=== PATIENT | male | born 1985 | race African-American/Black ===

== ENCOUNTER 2023-12-29 10:43 | Emergency (ER) | payer MEDICAID, OTHER ==
[~2023-12-29] VITALS: Ht 175.3 cm; Wt 63.6 kg
[2023-12-29 10:49] VITALS: PULSE 115; RESP 18; O2SAT 99
[2023-12-29] MEDS: ACETAMINOPHEN 325 MG TAB PO ONE (11:36)
[2023-12-29 11:39] VITALS: BP 117/89; PULSE 78; RESP 17; O2SAT 98
[2023-12-29 12:34] VITALS: TEMP 98.2
[2023-12-29] MEDS ORDERED: ACET500T58 PO (20:13)
[2023-12-29] MEDS ORDERED: IBUP-1455 PO (20:13)
== END 2023-12-29 12:41 | disposition home or self-care (01) ==
LOC: EDBD 10:43 → ER 10:43
DX: M79.18 Myalgia, other site (principal); M54.2 Cervicalgia; I10 Essential (primary) hypertension; F12.10 Cannabis abuse, uncomplicated; Z59.00 Homelessness unspecified

== ENCOUNTER 2023-12-29 17:06 | Emergency (ER) | payer MEDICAID ==
[~2023-12-29] VITALS: Ht 175.3 cm; Wt 64.3 kg
[2023-12-29 18:51] LABS: Basophils # (auto) 0 10 ^3/uL (0-0.2); Basophils % (auto) 0.3 % (0.0-2.0); Eosinophils # (auto) 0.1 10 ^3/uL (0-0.8); Eosinophils % (auto) 0.7 % (0.0-7.0); Lymphocytes # (auto) 2.6 10 ^3/uL (0.4-5.4); Lymphocytes % (auto) 26.1 % (10.0-50.0); Mean Corpuscular Hemoglobin 32.9 pg (28.0-32.0); Mean Corpuscular Hgb Conc. 33.4 g/dL (32.0-36.0); Mean Corpuscular Volume 98.5 fL (80.0-100.0); Monocytes # (auto) 0.7 10 ^3/uL (0-1.3); Monocytes % (auto) 6.9 % (0.0-12.0); Neutrophils # (auto) 6.4 10 ^3/uL (1.6-8.6); Nucleated Red Blood Cells % 0.1 %; Red Blood Cells 4.57 10^6/uL (4.5-5.90); Red Cell Distribution Width 12.8 % (11.8-14.3); White Blood Cell 9.8 10^3/uL (4.4-10.8)
[2023-12-29 19:07] LABS: Alanine Aminotransferase 66 U/L (7-40); Albumin 5.3 g/dL (3.2-4.8); Alkaline Phosphatase 62 U/L (46-116); Anion Gap 7 (5-15); Aspartate Aminotransferase 36 U/L (13-40); BUN/Creatinine Ratio 12.6 (10.0-20.0); Blood Urea Nitrogen 15 mg/dL (9-23); Calcium 10.8 mg/dL (8.5-10.1); Carbon Dioxide 31 mmol/L (20-30); Chloride 98 mmol/L (98-107); Glucose 89 mg/dL (74-106); Potassium 4.7 mmol/L (3.5-5.1); Sodium 136 mmol/L (136-145)
[2023-12-29 19:08] LABS: Bilirubin, Total 0.8 mg/dL (0.2-1.0); Total Protein 8.6 g/dL (5.7-8.2)
[2023-12-29] MEDS ORDERED: IBUP-1455 PO (20:13)
[2023-12-29] MEDS ORDERED: ACET500T58 PO (20:13)
[2023-12-29] MEDS: DexAMETHasone SOD PHOS 10MG/1ML VIAL INJ IM ONE (21:02)
[2023-12-29] MEDS: KETOROLAC TROMETH 60MG/2ML VIAL IM ONE (21:03)
[2023-12-29 21:20] VITALS: BP 111/70; PULSE 109; RESP 18; TEMP 97.4; O2SAT 98
== END 2023-12-29 20:15 | disposition home or self-care (01) ==
LOC: ER 17:06
DX: R07.0 Pain in throat (principal); F12.10 Cannabis abuse, uncomplicated; I10 Essential (primary) hypertension; R11.2 Nausea with vomiting, unspecified; Z59.00 Homelessness unspecified
CPT/HCPCS: 36415; 80053; 85025; 96372; 99284; J1100; J1885

== ENCOUNTER 2023-12-30 19:41 | Emergency (ER) | payer MEDICAID ==
[~2023-12-30] VITALS: Ht 175.3 cm; Wt 63.6 kg
[~2023-12-30 19:41] MED LIST: ACET500T58 PO; IBUP-1455 PO
[2023-12-30 20:41] VITALS: BP 116/71; PULSE 96; RESP 15; O2SAT 98
[2023-12-30] MEDS ORDERED: ACETAMINOPHEN/CODEINE#3 (300/30mg) TAB PO ONE (22:15)
== END 2023-12-31 08:53 | disposition left against medical advice (07) ==
LOC: ER 19:41
DX: M79.10 Myalgia, unspecified site (principal); I10 Essential (primary) hypertension; Z59.00 Homelessness unspecified; Z79.1 Long term (current) use of non-steroidal anti-inflammatories (NSAID); Z79.899 Other long term (current) drug therapy

== ENCOUNTER 2024-01-01 21:23 | Emergency (ER) | payer MEDICAID ==
[~2024-01-01] VITALS: Ht 175.3 cm; Wt 65.0 kg
[2024-01-01 23:22] VITALS: BP 118/56; PULSE 85; RESP 18; TEMP 97.9; O2SAT 96
[2024-01-01] MEDS: ONDANSETRON ODT 4 MG TAB PO ONE (23:26)
[2024-01-01] MEDS: DICYCLOMINE HCL 10 MG CAP PO ONE (23:26)
[2024-01-01 23:46] LABS: Basophils # (auto) 0 10 ^3/uL (0-0.2); Basophils % (auto) 0.5 % (0.0-2.0); Eosinophils # (auto) 0.1 10 ^3/uL (0-0.8); Eosinophils % (auto) 1.7 % (0.0-7.0); Hematocrit 37.7 % (41.0-53.0); Hemoglobin 12.3 g/dL (13.5-17.5); Lymphocytes # (auto) 2.3 10 ^3/uL (0.4-5.4); Lymphocytes % (auto) 39.6 % (10.0-50.0); Mean Corpuscular Hemoglobin 32.5 pg (28.0-32.0); Mean Corpuscular Hgb Conc. 32.7 g/dL (32.0-36.0); Mean Corpuscular Volume 99.4 fL (80.0-100.0); Monocytes # (auto) 0.8 10 ^3/uL (0-1.3); Monocytes % (auto) 13.6 % (0.0-12.0); Neutrophils # (auto) 2.6 10 ^3/uL (1.6-8.6); Neutrophils % (auto) 44.6 % (37.0-80.0); Nucleated Red Blood Cells % 0.1 %; Red Cell Distribution Width 12.8 % (11.8-14.3); White Blood Cell 5.7 10^3/uL (4.4-10.8)
[2024-01-01 23:56] LABS: Anion Gap 4 (5-15); Carbon Dioxide 28 mmol/L (20-30); Chloride 102 mmol/L (98-107); Sodium 134 mmol/L (136-145)
[2024-01-01 23:57] LABS: Calcium 9.3 mg/dL (8.7-10.4)
[2024-01-02 00:02] LABS: BUN/Creatinine Ratio 19.7 (10.0-20.0); Blood Urea Nitrogen 24 mg/dL (9-23); Glucose 74 mg/dL (74-106)
[2024-01-02] MEDS ORDERED: ZOFR4T PO (00:37)
[2024-01-02] MEDS ORDERED: DICY10CA PO (00:37)
== END 2024-01-02 01:00 | disposition home or self-care (01) ==
LOC: EDBD 21:23 → ER 21:23
DX: R07.89 Other chest pain (principal); R10.9 Unspecified abdominal pain; I10 Essential (primary) hypertension; F15.90 Other stimulant use, unspecified, uncomplicated; Z79.899 Other long term (current) drug therapy
CPT/HCPCS: 36415; 80048; 84484; 85025; 93005; 99284; J0500; Q0162

== ENCOUNTER 2024-01-02 09:59 | Emergency (ER) | payer MEDICAID ==
[~2024-01-02] VITALS: Ht 175.3 cm; Wt 66.0 kg
[~2024-01-02 09:59] MED LIST changes: +DICY10CA PO; +ZOFR4T PO
[2024-01-02 10:15] VITALS: BP 108/52; PULSE 85; RESP 18; O2SAT 98
== END 2024-01-02 15:06 | disposition left against medical advice (07) ==
LOC: ER 09:59
DX: Z00.00 Encounter for general adult medical examination without abnormal findings (principal); I10 Essential (primary) hypertension; Z79.1 Long term (current) use of non-steroidal anti-inflammatories (NSAID); Z79.2 Long term (current) use of antibiotics; Z79.899 Other long term (current) drug therapy; Z59.00 Homelessness unspecified; Z53.21 Procedure and treatment not carried out due to patient leaving prior to being seen by health care provider

== ENCOUNTER 2024-06-30 08:55 | Inpatient (IN) | payer MEDICAID ==
[~2024-06-30] VITALS: Ht 175.3 cm; Wt 70.5 kg
[2024-06-30 09:29] VITALS: PULSE 75; RESP 22; O2SAT 95
[2024-06-30 09:35] LABS: Basophils # (auto) 0 10 ^3/uL (0-0.2); Basophils % (auto) 0.6 % (0.0-2.0); Eosinophils # (auto) 0.1 10 ^3/uL (0-0.8); Eosinophils % (auto) 2.4 % (0.0-7.0); Hematocrit 45.2 % (41.0-53.0); Hemoglobin 15.5 g/dL (13.5-17.5); Lymphocytes # (auto) 1.5 10 ^3/uL (0.4-5.4); Lymphocytes % (auto) 41.9 % (10.0-50.0); Mean Corpuscular Hemoglobin 32.4 pg (28.0-32.0); Mean Corpuscular Hgb Conc. 34.3 g/dL (32.0-36.0); Mean Corpuscular Volume 94.5 fL (80.0-100.0); Monocytes # (auto) 0.3 10 ^3/uL (0-1.3); Monocytes % (auto) 8.2 % (0.0-12.0); Neutrophils # (auto) 1.7 10 ^3/uL (1.6-8.6); Neutrophils % (auto) 46.9 % (37.0-80.0); Nucleated Red Blood Cells % 0.2 %; Platelet Count (auto) 217 10^3/uL (140-450); Red Blood Cells 4.78 10^6/uL (4.5-5.90); Red Cell Distribution Width 14.5 % (11.8-14.3); White Blood Cell 3.7 10^3/uL (4.4-10.8)
[2024-06-30] MEDS: cloNIDine HCL 0.1 MG TAB PO ONE (10:06)
[2024-06-30 10:35] LABS: Anion Gap 4 (5-15); Carbon Dioxide 31 mmol/L (20-30); Chloride 102 mmol/L (98-107); Sodium 137 mmol/L (136-145)
[2024-06-30 10:36] LABS: Calcium 9.7 mg/dL (8.7-10.4)
[2024-06-30 10:41] LABS: BUN/Creatinine Ratio 6.3 (10.0-20.0); Blood Urea Nitrogen 7 mg/dL (9-23); Glucose 98 mg/dL (74-106)
[2024-06-30 11:49] LABS: Lipase 26 U/L (12-53)
[2024-06-30] MEDS: SODIUM CHLORIDE 0.9% 1,000 ML IV SCH (13:30)
[2024-06-30] MEDS ORDERED: NITROGLYCERIN 0.4 MG SL TAB SL PRN ×2 (13:30)
[2024-06-30] MEDS ORDERED: MORPHINE SULFATE INJ 2 MG/ml SYRG IV PRN (13:30)
[2024-06-30] MEDS ORDERED: ONDANSETRON HCL 4 MG/2 ML VIAL IV PRN (13:30)
[2024-06-30] MEDS ORDERED: DOCUSATE SOD 100 MG CAP PO PRN (13:30)
[2024-06-30] MEDS: PANTOPRAZOLE 40 MG/10 ML VIAL INJ IV ONE (14:53)
[2024-06-30] MEDS: DICYCLOMINE HCL (10MG/ML) 2 ML AMPULE IM ONE (14:53)
[2024-06-30] MEDS: HYDROcodone-ACET 5/325MG TAB PO PRN (14:54)
[2024-06-30 15:02] LABS: Amphetamine Screen, Urine Neg (NEGATIVE)
[2024-06-30 15:03] LABS: Barbiturate Scree,Urine Neg (NEGATIVE); Benzodiazephine Screen, Urine Neg (NEGATIVE); Cannabinoid Screen, Urine Neg (NEGATIVE); Cocaine Screen, Urine Neg (NEGATIVE); Opiate Scree,Urine Neg (NEGATIVE); Phencyclidine Screen, Urine Neg (NEGATIVE)
[2024-06-30 19:30] VITALS: PULSE 72; RESP 15; O2SAT 98
[2024-07-01 04:00] LABS: Basophils # (auto) 0 10 ^3/uL (0-0.2); Basophils % (auto) 0.6 % (0.0-2.0); Eosinophils # (auto) 0.1 10 ^3/uL (0-0.8); Eosinophils % (auto) 2.4 % (0.0-7.0); Hematocrit 43.3 % (41.0-53.0); Hemoglobin 14.2 g/dL (13.5-17.5); Lymphocytes # (auto) 1.8 10 ^3/uL (0.4-5.4); Lymphocytes % (auto) 57.5 % (10.0-50.0); Mean Corpuscular Hemoglobin 31.4 pg (28.0-32.0); Mean Corpuscular Hgb Conc. 32.9 g/dL (32.0-36.0); Mean Corpuscular Volume 95.3 fL (80.0-100.0); Monocytes # (auto) 0.3 10 ^3/uL (0-1.3); Neutrophils # (auto) 0.9 10 ^3/uL (1.6-8.6); Neutrophils % (auto) 30.5 % (37.0-80.0); Nucleated Red Blood Cells % 0.6 %; Platelet Count (auto) 181 10^3/uL (140-450); Red Blood Cells 4.54 10^6/uL (4.5-5.90); Red Cell Distribution Width 14.8 % (11.8-14.3); White Blood Cell 3.1 10^3/uL (4.4-10.8)
[2024-07-01 04:19] LABS: Albumin 3.5 g/dL (3.2-4.8); Alkaline Phosphatase 53 U/L (46-116); Anion Gap 1 (5-15); Aspartate Aminotransferase 14 U/L (13-40); BUN/Creatinine Ratio 6.5 (10.0-20.0); Bilirubin, Total 2.6 mg/dL (0.2-1.0); Blood Urea Nitrogen 7 mg/dL (9-23); Calcium 9.3 mg/dL (8.7-10.4); Carbon Dioxide 31 mmol/L (20-30); Chloride 109 mmol/L (98-107); Glucose 82 mg/dL (74-106); Potassium 3.9 mmol/L (3.5-5.1); Sodium 141 mmol/L (136-145)
[2024-07-01 04:22] LABS: Alanine Aminotransferase 11 U/L (7-40)
[2024-07-01 07:30] VITALS: PULSE 59; RESP 14; O2SAT 95
[2024-07-01] MEDS: PANTOPRAZOLE 40 MG/10 ML VIAL INJ IV SCH (10:10)
[2024-07-01 12:24] VITALS: BP 160/101; PULSE 75; RESP 20; TEMP 98.6; O2SAT 98
[2024-07-01 17:06] VITALS: BP 136/94; PULSE 70; RESP 18; TEMP 98.4; O2SAT 96
[2024-07-01] MEDS ORDERED: hydrALAZINE HCL 20 MG/ML VL IV PRN (17:15)
[2024-07-01 18:33] LABS: Urine Bacteria None Seen /hpf (None Seen)
[2024-07-01 19:01] LABS: Urine Blood Negative /uL (Negative); Urine Clarity Clear (Clear); Urine Color Light-Yellow (Yellow); Urine Protein, UAD Negative (Negative); Urine Specific Gravity 1.006 (1.001-1.035); Urine Urobilinogen Normal (Negative); Urine WBC <1 /hpf (0 - 3)
[2024-07-01 20:00] VITALS: PULSE 67; RESP 18; O2SAT 100
[2024-07-01 21:00] VITALS: BP 149/92; PULSE 67; RESP 17; TEMP 97.9; O2SAT 99
[2024-07-02] VITALS (7 sets, daily range): BP systolic 119–159; BP diastolic 80–105; PULSE 61–90; RESP 14–18; TEMP 97.6–98.9; O2SAT 96–100
[2024-07-02 06:17] LABS: Basophils # (auto) 0 10 ^3/uL (0-0.2); Basophils % (auto) 0.4 % (0.0-2.0); Eosinophils # (auto) 0.1 10 ^3/uL (0-0.8); Eosinophils % (auto) 1.8 % (0.0-7.0); Hematocrit 43.7 % (41.0-53.0); Hemoglobin 14.7 g/dL (13.5-17.5); Lymphocytes % (auto) 53.4 % (10.0-50.0); Mean Corpuscular Hgb Conc. 33.7 g/dL (32.0-36.0); Monocytes # (auto) 0.3 10 ^3/uL (0-1.3); Monocytes % (auto) 7.6 % (0.0-12.0); Neutrophils # (auto) 1.4 10 ^3/uL (1.6-8.6); Neutrophils % (auto) 36.8 % (37.0-80.0); Nucleated Red Blood Cells % 0.1 %; Platelet Count (auto) 194 10^3/uL (140-450); Red Cell Distribution Width 14.4 % (11.8-14.3); White Blood Cell 3.7 10^3/uL (4.4-10.8)
[2024-07-02 06:20] LABS: Chloride 107 mmol/L (98-107); Potassium 3.8 mmol/L (3.5-5.1); Sodium 141 mmol/L (136-145)
[2024-07-02 06:21] LABS: Anion Gap 4 (5-15); Calcium 9.3 mg/dL (8.7-10.4); Carbon Dioxide 30 mmol/L (20-30)
[2024-07-02 06:26] LABS: BUN/Creatinine Ratio 5.1 (10.0-20.0); Blood Urea Nitrogen 5 mg/dL (9-23); Glucose 84 mg/dL (74-106)
[2024-07-02] MEDS: HYDROcodone-ACET 5/325MG TAB PO PRN (11:49)
== END 2024-07-02 18:43 | disposition home or self-care (01) | DRG 815 ==
LOC: EDBD 08:55 → ER 08:55 → OVERFLOW 13:22 → CENTRAL 07-01 11:18
PROVIDERS: ADMIT Nurse Practitioner Family; ATTEND Nurse Practitioner Family
DX: T67.01XA Heatstroke and sunstroke, initial encounter (principal); N17.0 Acute kidney failure with tubular necrosis; E44.1 Mild protein-calorie malnutrition; F41.9 Anxiety disorder, unspecified; I10 Essential (primary) hypertension; R73.03 Prediabetes; F20.9 Schizophrenia, unspecified; Z59.00 Homelessness unspecified; Z68.1 Body mass index [BMI] 19.9 or less, adult
CPT/HCPCS: 36415; 74176; 80048; 80053; 80307; 81001; 82550; 82962; 83690; 85025; G0378; J2470

== ENCOUNTER 2024-07-09 14:14 | Inpatient (IN) | payer MEDICAID ==
[~2024-07-09] VITALS: Ht 175.3 cm; Wt 68.2 kg
[2024-07-09 15:28] LABS: Basophils # (auto) 0 10 ^3/uL (0-0.2); Basophils % (auto) 0.3 % (0.0-2.0); Eosinophils # (auto) 0 10 ^3/uL (0-0.8); Eosinophils % (auto) 0.8 % (0.0-7.0); Hematocrit 46.6 % (41.0-53.0); Hemoglobin 15.6 g/dL (13.5-17.5); Lymphocytes # (auto) 1.3 10 ^3/uL (0.4-5.4); Lymphocytes % (auto) 26.9 % (10.0-50.0); Mean Corpuscular Hemoglobin 31.9 pg (28.0-32.0); Mean Corpuscular Hgb Conc. 33.5 g/dL (32.0-36.0); Mean Corpuscular Volume 95.1 fL (80.0-100.0); Monocytes # (auto) 0.3 10 ^3/uL (0-1.3); Monocytes % (auto) 6.9 % (0.0-12.0); Neutrophils % (auto) 65.1 % (37.0-80.0); Nucleated Red Blood Cells % 0.1 %; Platelet Count (auto) 228 10^3/uL (140-450); Red Cell Distribution Width 14.8 % (11.8-14.3); White Blood Cell 4.7 10^3/uL (4.4-10.8)
[2024-07-09 15:57] LABS: Chloride 108 mmol/L (98-107); Potassium 3.8 mmol/L (3.5-5.1); Sodium 142 mmol/L (136-145)
[2024-07-09 15:58] LABS: Anion Gap 6 (5-15); Calcium 10.6 mg/dL (8.7-10.4); Carbon Dioxide 28 mmol/L (20-30)
[2024-07-09 16:03] LABS: BUN/Creatinine Ratio 9.7 (10.0-20.0); Blood Alcohol 58.1 mg/dL (<10); Blood Urea Nitrogen 11 mg/dL (9-23); Glucose 72 mg/dL (74-106)
[2024-07-09] MEDS: SODIUM CHLORIDE 0.9% 1,000 ML IV ONE ×2 (17:05→17:47)
[2024-07-09] MEDS: NITROGLYCERIN 0.4 MG SL TAB SL ONE (17:08)
[2024-07-09] MEDS: ASPirin 325 MG TAB PO ONE (17:08)
[2024-07-09] MEDS: LORazepam 2MG/ML-1ML VIAL IV ONE (17:08)
[2024-07-09] MEDS: ENOXAPARIN SOD 60 MG/0.6 ML SYRINGE SC ONE (17:08)
[2024-07-09 17:14] VITALS: PULSE 85; RESP 20; O2SAT 98
[2024-07-09 19:30] VITALS: PULSE 74; RESP 20; O2SAT 98
[2024-07-09 20:48] LABS: Amphetamine Screen, Urine Neg (NEGATIVE); Barbiturate Scree,Urine Neg (NEGATIVE); Benzodiazephine Screen, Urine Neg (NEGATIVE); Cannabinoid Screen, Urine Pos (NEGATIVE); Cocaine Screen, Urine Neg (NEGATIVE); Opiate Scree,Urine Neg (NEGATIVE); Phencyclidine Screen, Urine Neg (NEGATIVE)
[2024-07-09] MEDS: QUEtiapine FUMARATE 25 MG TAB PO SCH (23:00)
[2024-07-10 09:24] VITALS: PULSE 66; RESP 12; O2SAT 99
[2024-07-10] MEDS ORDERED: LORazepam 2MG/ML-1ML VIAL IV PRN (09:30)
[2024-07-10] MEDS: FLUoxetine HCL 20 MG CAP PO SCH (09:54)
[2024-07-10] MEDS: LACTATED RINGER'S 1,000 ML IV ONE (09:54)
[2024-07-10] MEDS ORDERED: DOCUSATE SOD 100 MG CAP PO PRN (11:15)
[2024-07-10] MEDS ORDERED: MORPHINE SULFATE INJ 2 MG/ml SYRG IV PRN (11:15)
[2024-07-10] MEDS ORDERED: NITROGLYCERIN 0.4 MG SL TAB SL PRN (11:15)
[2024-07-10] MEDS ORDERED: HYDROmorphone HCL 2 MG/ML VL/or syr IV PRN (11:15)
[2024-07-10] MEDS ORDERED: ONDANSETRON HCL 4 MG/2 ML VIAL IV PRN (11:15)
[2024-07-10] MEDS: SODIUM CHLOR 0.9% PF (SALINE LOCK) 10ML VIAL/SYR IV SCH (14:06)
[2024-07-10] MEDS: QUEtiapine FUMARATE 25 MG TAB PO SCH (18:38)
[2024-07-10] MEDS: ACETAMINOPHEN 325 MG TAB PO PRN (18:39)
[2024-07-11] VITALS (7 sets, daily range): BP systolic 130–146; BP diastolic 79–98; PULSE 65–69; RESP 17–20; TEMP 97.5–98.4; O2SAT 98–100
[2024-07-11 05:24] LABS: Hematocrit 43.4 % (41.0-53.0); Hemoglobin 14.9 g/dL (13.5-17.5); Mean Corpuscular Hemoglobin 32.5 pg (28.0-32.0); Mean Corpuscular Hgb Conc. 34.3 g/dL (32.0-36.0); Mean Corpuscular Volume 94.8 fL (80.0-100.0); Platelet Count (auto) 201 10^3/uL (140-450); Red Blood Cells 4.58 10^6/uL (4.5-5.90); Red Cell Distribution Width 14.9 % (11.8-14.3); White Blood Cell 3.8 10^3/uL (4.4-10.8)
[2024-07-11 05:36] LABS: Band Neutrophils % (manual) 0; Basophils % (manual) 0 (0.0-2.0); Blast Cells 0; Metamyelocytes % 0; Myelocytes % 0; Promyelocytes % 0; Reactive Lymphocytes 0
[2024-07-11 05:59] LABS: Alanine Aminotransferase 15 U/L (7-40); Albumin 3.9 g/dL (3.2-4.8); Alkaline Phosphatase 54 U/L (46-116); Anion Gap 7 (5-15); Aspartate Aminotransferase 15 U/L (13-40); BUN/Creatinine Ratio 8.1 (10.0-20.0); Bilirubin, Total 2.4 mg/dL (0.2-1.0); Blood Urea Nitrogen 8 mg/dL (9-23); Calcium 9.8 mg/dL (8.7-10.4); Carbon Dioxide 26 mmol/L (20-30); Chloride 108 mmol/L (98-107); Glucose 90 mg/dL (74-106); Potassium 3.7 mmol/L (3.5-5.1); Sodium 141 mmol/L (136-145); Total Protein 6.6 g/dL (5.7-8.2)
[2024-07-11 08:29] LABS: Eosinophils % (manual) 1 (0-7); Lymphocytes % (manual) 65 (10.0-50.0); Monocytes % (manual) 1 (0-12)
[2024-07-11 08:30] LABS: Platelet Estimate Adequate
[2024-07-11] MEDS: THIAMINE HCL 100 MG TAB PO SCH (09:34)
[2024-07-11] MEDS: FOLIC ACID 1 MG TAB PO SCH (09:34)
[2024-07-11] MEDS: ENOXAPARIN SOD 40 MG/0.4 ML SYRINGE SC SCH (09:34)
[2024-07-11] MEDS: HYDROcodone-ACET 5/325MG TAB PO PRN (09:49)
[2024-07-11] MEDS ORDERED: DEXTROSE (50%) 50ML SYRG IV PRN (16:45)
[2024-07-11] MEDS: InsuLIN REG 1unit/0.01ml Soln (100units/ml) SC SCH (17:00)
[2024-07-11] MEDS: ACCU-CHEK COMFORT CURVE STRIP VI SCH (17:42)
[2024-07-12] VITALS (7 sets, daily range): BP systolic 120–149; BP diastolic 80–96; PULSE 59–75; RESP 16–20; TEMP 97.4–98.4; O2SAT 96–99
[2024-07-12 06:55] LABS: Hemoglobin 15.4 g/dL (13.5-17.5); Mean Corpuscular Hemoglobin 31.9 pg (28.0-32.0); Mean Corpuscular Hgb Conc. 33.4 g/dL (32.0-36.0); Mean Corpuscular Volume 95.4 fL (80.0-100.0); Platelet Count (auto) 201 10^3/uL (140-450); Red Blood Cells 4.82 10^6/uL (4.5-5.90); Red Cell Distribution Width 14.8 % (11.8-14.3); White Blood Cell 3.2 10^3/uL (4.4-10.8)
[2024-07-12 07:10] LABS: Band Neutrophils % (manual) 0; Basophils % (manual) 0 (0.0-2.0); Blast Cells 0; Metamyelocytes % 0; Myelocytes % 0; Promyelocytes % 0
[2024-07-12 07:47] LABS: Alanine Aminotransferase 15 U/L (7-40); Alkaline Phosphatase 54 U/L (46-116); Anion Gap 6 (5-15); BUN/Creatinine Ratio 8.3 (10.0-20.0); Blood Urea Nitrogen 9 mg/dL (9-23); Calcium 9.9 mg/dL (8.7-10.4); Carbon Dioxide 29 mmol/L (20-30); Chloride 106 mmol/L (98-107); Glucose 79 mg/dL (74-106); Potassium 4.1 mmol/L (3.5-5.1); Sodium 141 mmol/L (136-145)
[2024-07-12 07:49] LABS: Albumin 4.1 g/dL (3.2-4.8); Aspartate Aminotransferase 12 U/L (13-40); Bilirubin, Total 1.7 mg/dL (0.2-1.0); Total Protein 6.8 g/dL (5.7-8.2)
[2024-07-12 09:48] LABS: Eosinophils % (manual) 1 (0-7); Lymphocytes % (manual) 58 (10.0-50.0); Monocytes % (manual) 6 (0-12); Platelet Estimate Adequate; Reactive Lymphocytes 2
[2024-07-13] VITALS (8 sets, daily range): BP systolic 120–137; BP diastolic 85–97; PULSE 62–95; RESP 16–18; TEMP 97.4–98.4; O2SAT 96–100
[2024-07-13 06:34] LABS: Basophils # (auto) 0 10 ^3/uL (0-0.2); Basophils % (auto) 0.5 % (0.0-2.0); Eosinophils # (auto) 0.1 10 ^3/uL (0-0.8); Eosinophils % (auto) 2.7 % (0.0-7.0); Hematocrit 45.7 % (41.0-53.0); Lymphocytes # (auto) 2.1 10 ^3/uL (0.4-5.4); Mean Corpuscular Hemoglobin 33.3 pg (28.0-32.0); Mean Corpuscular Hgb Conc. 34.9 g/dL (32.0-36.0); Mean Corpuscular Volume 95.3 fL (80.0-100.0); Monocytes # (auto) 0.3 10 ^3/uL (0-1.3); Monocytes % (auto) 9.9 % (0.0-12.0); Neutrophils # (auto) 0.8 10 ^3/uL (1.6-8.6); Neutrophils % (auto) 23.4 % (37.0-80.0); Nucleated Red Blood Cells % 0.2 %; Platelet Count (auto) 202 10^3/uL (140-450); Red Cell Distribution Width 14.7 % (11.8-14.3); White Blood Cell 3.4 10^3/uL (4.4-10.8)
[2024-07-13 06:50] LABS: Alanine Aminotransferase 16 U/L (7-40); Albumin 4.2 g/dL (3.2-4.8); Alkaline Phosphatase 55 U/L (46-116); Anion Gap 4 (5-15); Aspartate Aminotransferase 15 U/L (13-40); BUN/Creatinine Ratio 7.1 (10.0-20.0); Blood Urea Nitrogen 8 mg/dL (9-23); Carbon Dioxide 30 mmol/L (20-30); Chloride 106 mmol/L (98-107); Glucose 85 mg/dL (74-106); Lymphocytes % (auto) 63.5 % (10.0-50.0); Potassium 4.2 mmol/L (3.5-5.1); Sodium 140 mmol/L (136-145)
[2024-07-13 06:51] LABS: Bilirubin, Total 1.2 mg/dL (0.2-1.0)
[2024-07-14] VITALS (7 sets, daily range): BP systolic 113–134; BP diastolic 70–90; PULSE 60–86; RESP 16–20; TEMP 97.4–98.6; O2SAT 94–99
[2024-07-14 06:44] LABS: Basophils # (auto) 0 10 ^3/uL (0-0.2); Basophils % (auto) 0.4 % (0.0-2.0); Eosinophils # (auto) 0.1 10 ^3/uL (0-0.8); Eosinophils % (auto) 3.3 % (0.0-7.0); Hematocrit 46.4 % (41.0-53.0); Hemoglobin 16.2 g/dL (13.5-17.5); Lymphocytes # (auto) 1.9 10 ^3/uL (0.4-5.4); Lymphocytes % (auto) 50.7 % (10.0-50.0); Mean Corpuscular Hemoglobin 32.7 pg (28.0-32.0); Mean Corpuscular Hgb Conc. 34.9 g/dL (32.0-36.0); Mean Corpuscular Volume 93.7 fL (80.0-100.0); Monocytes # (auto) 0.4 10 ^3/uL (0-1.3); Monocytes % (auto) 10.2 % (0.0-12.0); Neutrophils # (auto) 1.3 10 ^3/uL (1.6-8.6); Neutrophils % (auto) 35.4 % (37.0-80.0); Nucleated Red Blood Cells % 0.4 %; Platelet Count (auto) 229 10^3/uL (140-450); Red Blood Cells 4.95 10^6/uL (4.5-5.90); Red Cell Distribution Width 14.5 % (11.8-14.3); White Blood Cell 3.6 10^3/uL (4.4-10.8)
[2024-07-14 07:07] LABS: Alanine Aminotransferase 19 U/L (7-40); Albumin 4.4 g/dL (3.2-4.8); Alkaline Phosphatase 58 U/L (46-116); Anion Gap 6 (5-15); Aspartate Aminotransferase 16 U/L (13-40); Bilirubin, Total 1.2 mg/dL (0.2-1.0); Blood Urea Nitrogen 8 mg/dL (9-23); Calcium 10.4 mg/dL (8.7-10.4); Carbon Dioxide 26 mmol/L (20-30); Chloride 106 mmol/L (98-107); Glucose 88 mg/dL (74-106); Sodium 138 mmol/L (136-145); Total Protein 7.4 g/dL (5.7-8.2)
[2024-07-14 08:22] LABS: BUN/Creatinine Ratio 7.8 (10.0-20.0)
[2024-07-14] MEDS: HYDROcodone-ACET 5/325MG TAB PO PRN (10:10)
[2024-07-15 05:34] VITALS: BP 109/74; PULSE 71; RESP 20; TEMP 97.8; O2SAT 98
[2024-07-15 06:36] LABS: Basophils # (auto) 0 10 ^3/uL (0-0.2); Basophils % (auto) 0.6 % (0.0-2.0); Eosinophils # (auto) 0.1 10 ^3/uL (0-0.8); Eosinophils % (auto) 2.4 % (0.0-7.0); Hematocrit 47.6 % (41.0-53.0); Hemoglobin 16.4 g/dL (13.5-17.5); Lymphocytes # (auto) 1.9 10 ^3/uL (0.4-5.4); Lymphocytes % (auto) 54.3 % (10.0-50.0); Mean Corpuscular Hemoglobin 32.7 pg (28.0-32.0); Mean Corpuscular Hgb Conc. 34.5 g/dL (32.0-36.0); Mean Corpuscular Volume 94.8 fL (80.0-100.0); Monocytes # (auto) 0.4 10 ^3/uL (0-1.3); Neutrophils # (auto) 1.1 10 ^3/uL (1.6-8.6); Neutrophils % (auto) 30.7 % (37.0-80.0); Nucleated Red Blood Cells % 0.3 %; Platelet Count (auto) 218 10^3/uL (140-450); Red Blood Cells 5.02 10^6/uL (4.5-5.90); Red Cell Distribution Width 14.8 % (11.8-14.3); White Blood Cell 3.5 10^3/uL (4.4-10.8)
[2024-07-15 06:47] LABS: Alanine Aminotransferase 16 U/L (7-40); Alkaline Phosphatase 58 U/L (46-116); Anion Gap 4 (5-15); BUN/Creatinine Ratio 7.4 (10.0-20.0); Blood Urea Nitrogen 9 mg/dL (9-23); Calcium 10.3 mg/dL (8.7-10.4); Carbon Dioxide 29 mmol/L (20-30); Chloride 105 mmol/L (98-107); Glucose 84 mg/dL (74-106); Potassium 4.1 mmol/L (3.5-5.1); Sodium 138 mmol/L (136-145)
[2024-07-15 06:48] LABS: Albumin 4.3 g/dL (3.2-4.8); Aspartate Aminotransferase 17 U/L (13-40)
[2024-07-15 06:49] LABS: Total Protein 7.5 g/dL (5.7-8.2)
[2024-07-15 08:00] VITALS: PULSE 74; RESP 18; O2SAT 98
[2024-07-15 09:00] VITALS: BP 120/73; PULSE 74; RESP 18; TEMP 97.8; O2SAT 98
[2024-07-15 13:00] VITALS: BP 117/79; PULSE 79; RESP 18; TEMP 98.2; O2SAT 98
[2024-07-15 16:50] VITALS: BP 141/89; PULSE 73; RESP 18; TEMP 97.7; O2SAT 98
[2024-07-15 20:00] VITALS: RESP 16
[2024-07-16 09:00] VITALS: BP 119/80; PULSE 100; RESP 18; TEMP 99.6; O2SAT 95
[2024-07-16 13:00] VITALS: BP 136/78; PULSE 80; RESP 17; TEMP 98.1; O2SAT 95
[2024-07-16 17:00] VITALS: BP 124/80; PULSE 94; RESP 17; TEMP 99.4; O2SAT 97
[2024-07-16 21:00] VITALS: BP 117/62; PULSE 98; RESP 18; TEMP 98.3; O2SAT 99
[2024-07-17] VITALS (8 sets, daily range): BP systolic 103–131; BP diastolic 62–80; PULSE 74–90; RESP 16–18; TEMP 97.8–98.7; O2SAT 94–99
[2024-07-18] VITALS (7 sets, daily range): BP systolic 106–126; BP diastolic 63–78; PULSE 69–80; RESP 15–20; TEMP 97.5–98.1; O2SAT 92–98
[2024-07-19] VITALS (8 sets, daily range): BP systolic 102–127; BP diastolic 70–82; PULSE 62–86; RESP 17–19; TEMP 97.4–98.5; O2SAT 94–99
[2024-07-20] VITALS (7 sets, daily range): BP systolic 110–124; BP diastolic 75–78; PULSE 68–79; RESP 16–20; TEMP 97.3–98.3; O2SAT 96–99
[2024-07-21] VITALS (7 sets, daily range): BP systolic 104–125; BP diastolic 71–81; PULSE 71–82; RESP 16–20; TEMP 97.9–98.3; O2SAT 95–97
[2024-07-22 05:00] VITALS: BP 110/76; PULSE 70; RESP 16; TEMP 98.5; O2SAT 94
[2024-07-22 08:56] VITALS: BP 115/75; PULSE 78; RESP 16; TEMP 98.1; O2SAT 98
[2024-07-22 13:00] VITALS: BP 119/65; PULSE 83; RESP 19; TEMP 98.3; O2SAT 95
[2024-07-22 17:00] VITALS: BP 110/77; PULSE 65; RESP 16; TEMP 97.8; O2SAT 100
[2024-07-22 22:00] VITALS: BP 109/71; PULSE 74; RESP 18; TEMP 98.2; O2SAT 95
[2024-07-23 01:00] VITALS: BP 92/51; PULSE 63; RESP 16; TEMP 98.7; O2SAT 95
[2024-07-23 05:00] VITALS: BP 119/82; PULSE 75; RESP 16; TEMP 98.2; O2SAT 94
[2024-07-23 08:40] VITALS: BP 120/81; PULSE 71; RESP 18; TEMP 98.5; O2SAT 98
[2024-07-23 12:54] VITALS: BP 124/77; PULSE 84; RESP 18; TEMP 98; O2SAT 95
[2024-07-23 17:00] VITALS: BP 99/60; PULSE 83; RESP 16; TEMP 98.3; O2SAT 97
[2024-07-23 22:00] VITALS: BP 129/61; PULSE 67; RESP 18; TEMP 98; O2SAT 97
[2024-07-24 01:00] VITALS: BP 117/87; PULSE 72; RESP 16; TEMP 98.1; O2SAT 96
[2024-07-24 05:00] VITALS: BP 121/74; PULSE 68; RESP 16; TEMP 98.2; O2SAT 97
[2024-07-24 08:37] VITALS: BP 108/72; PULSE 86; RESP 16; O2SAT 96
[2024-07-24 09:00] VITALS: BP 97/63; PULSE 95; RESP 18; TEMP 98.2; O2SAT 95
[2024-07-24] MEDS ORDERED: FLUO-470 PO (11:32)
[2024-07-24] MEDS ORDERED: QUET1TAB11 PO (11:32)
== END 2024-07-24 12:42 | disposition home or self-care (01) | DRG 816 ==
LOC: EDBD 14:14 → ER 14:14 → TELE 07-10 11:04 → TELE-WESTW 07-11 08:44 → WEST WING 07-12 19:11
PROVIDERS: ADMIT Internal Medicine; ATTEND Nurse Practitioner Acute Care
DX: T51.91XA Toxic effect of unspecified alcohol, accidental (unintentional), initial encounter (principal); G92.8 Other toxic encephalopathy; F25.9 Schizoaffective disorder, unspecified; F33.1 Major depressive disorder, recurrent, moderate; F41.9 Anxiety disorder, unspecified; I10 Essential (primary) hypertension; M25.569 Pain in unspecified knee; E11.9 Type 2 diabetes mellitus without complications; Z56.0 Unemployment, unspecified; Z79.899 Other long term (current) drug therapy; Z59.00 Homelessness unspecified; Z79.4 Long term (current) use of insulin; Z91.199 Patient's noncompliance with other medical treatment and regimen due to unspecified reason; Y90.2 Blood alcohol level of 40-59 mg/100 ml; F10.129 Alcohol abuse with intoxication, unspecified; Y92.410 Unspecified street and highway as the place of occurrence of the external cause
CPT/HCPCS: 36415; 71045; 74176; 80048; 80053; 80307; 80320; 82962; 83036; 84484; 85007; 85025; 85027; 93005; 93306; 93971; 99291; G0378

== ENCOUNTER 2024-08-25 09:16 | Inpatient (IN) | payer MEDICAID ==
[~2024-08-25] VITALS: Ht 175.3 cm; Wt 69.6 kg
[~2024-08-25 09:16] MED LIST changes: +FLUO-470 PO; +QUET1TAB11 PO
[2024-08-25 10:14] LABS: Basophils # (auto) 0 10 ^3/uL (0-0.2); Basophils % (auto) 0.3 % (0.0-2.0); Eosinophils # (auto) 0 10 ^3/uL (0-0.8); Eosinophils % (auto) 0.5 % (0.0-7.0); Hematocrit 46.9 % (41.0-53.0); Hemoglobin 15.9 g/dL (13.5-17.5); Lymphocytes # (auto) 1.2 10 ^3/uL (0.4-5.4); Lymphocytes % (auto) 28.6 % (10.0-50.0); Mean Corpuscular Hemoglobin 33.2 pg (28.0-32.0); Mean Corpuscular Hgb Conc. 33.9 g/dL (32.0-36.0); Monocytes # (auto) 0.2 10 ^3/uL (0-1.3); Neutrophils # (auto) 2.8 10 ^3/uL (1.6-8.6); Neutrophils % (auto) 65.6 % (37.0-80.0); Nucleated Red Blood Cells % 0.1 %; Platelet Count (auto) 231 10^3/uL (140-450); Red Blood Cells 4.79 10^6/uL (4.5-5.90); Red Cell Distribution Width 14.4 % (11.8-14.3); White Blood Cell 4.3 10^3/uL (4.4-10.8)
[2024-08-25 10:29] LABS: Alanine Aminotransferase 13 U/L (7-40); Alkaline Phosphatase 67 U/L (46-116); Anion Gap 9 (5-15); Aspartate Aminotransferase 15 U/L (13-40); BUN/Creatinine Ratio 8.5 (10.0-20.0); Blood Urea Nitrogen 10 mg/dL (9-23); Calcium 10.4 mg/dL (8.7-10.4); Carbon Dioxide 24 mmol/L (20-31); Chloride 108 mmol/L (98-107); Glucose 81 mg/dL (74-106); Potassium 4.2 mmol/L (3.5-5.1); Sodium 141 mmol/L (136-145)
[2024-08-25 10:30] LABS: Albumin 4.5 g/dL (3.2-4.8); Bilirubin, Total 0.8 mg/dL (0.2-1.0); Total Protein 7.6 g/dL (5.7-8.2)
[2024-08-25 11:15] LABS: Urine Bacteria None Seen /hpf (None Seen)
[2024-08-25 11:44] LABS: Urine Blood Negative /uL (Negative); Urine Clarity Turbid (Clear); Urine Color Light-Yellow (Yellow); Urine Protein, UAD TRACE (Negative); Urine Specific Gravity 1.007 (1.001-1.035); Urine Urobilinogen Normal (Negative); Urine WBC 1 /hpf (0 - 3); Urine pH 6.5 (5.0-9.0)
[2024-08-25] MEDS ORDERED: NITROGLYCERIN 0.4 MG SL TAB SL PRN ×2 (14:15)
[2024-08-25 14:33] LABS: Triglycerides 134 mg/dL (< 150)
[2024-08-25 14:34] LABS: LDL Cholesterol 75 mg/dL (< 100)
[2024-08-25 14:35] LABS: Cholesterol 143 mg/dL (< 200); HDL Cholesterol 52 mg/dL (40-59)
[2024-08-25 14:39] LABS: INR 1.08 (0.9-1.15); Prothrombin Time 11.4 sec (9.3-11.8)
[2024-08-25] MEDS: ASPirin 81 mg TAB PO SCH (15:49)
[2024-08-25] MEDS: ENOXAPARIN SOD 40 MG/0.4 ML SYRINGE SC ONE (15:50)
[2024-08-25 19:45] VITALS: PULSE 67; RESP 20; O2SAT 98
[2024-08-25 19:46] VITALS: BP 139/99; PULSE 72; RESP 20; TEMP 98.1; O2SAT 96
[2024-08-25 20:00] VITALS: PULSE 67; PULSE 79; RESP 20; O2SAT 98
[2024-08-25 21:00] VITALS: BP 135/85; PULSE 67; RESP 20; TEMP 97.6; O2SAT 98
[2024-08-25] MEDS: QUEtiapine FUMARATE 25 MG TAB PO SCH (21:29)
[2024-08-25] MEDS: ATORVASTATIN 20 MG TAB PO SCH (21:30)
[2024-08-26] VITALS (8 sets, daily range): BP systolic 124–141; BP diastolic 86–102; PULSE 68–82; RESP 16–20; TEMP 98–98.5; O2SAT 95–98
[2024-08-26 05:55] LABS: Hematocrit 45.3 % (41.0-53.0); Hemoglobin 15.3 g/dL (13.5-17.5); Mean Corpuscular Hemoglobin 32.5 pg (28.0-32.0); Mean Corpuscular Hgb Conc. 33.7 g/dL (32.0-36.0); Mean Corpuscular Volume 96.6 fL (80.0-100.0); Platelet Count (auto) 208 10^3/uL (140-450); Red Blood Cells 4.69 10^6/uL (4.5-5.90); Red Cell Distribution Width 14.7 % (11.8-14.3); White Blood Cell 3.6 10^3/uL (4.4-10.8)
[2024-08-26 05:58] LABS: Band Neutrophils % (manual) 0; Basophils % (manual) 0 (0.0-2.0); Blast Cells 0; Metamyelocytes % 0; Monocytes % (manual) 0 (0-12); Myelocytes % 0; Promyelocytes % 0
[2024-08-26 06:20] LABS: Alanine Aminotransferase 12 U/L (7-40); Albumin 4.4 g/dL (3.2-4.8); Alkaline Phosphatase 60 U/L (46-116); Anion Gap 5 (5-15); Aspartate Aminotransferase 13 U/L (13-40); BUN/Creatinine Ratio 6.3 (10.0-20.0); Blood Urea Nitrogen 7 mg/dL (9-23); Carbon Dioxide 29 mmol/L (20-31); Chloride 107 mmol/L (98-107); Glucose 88 mg/dL (74-106); Potassium 3.8 mmol/L (3.5-5.1); Sodium 141 mmol/L (136-145)
[2024-08-26 06:21] LABS: Bilirubin, Total 1.3 mg/dL (0.2-1.0); Total Protein 7.2 g/dL (5.7-8.2)
[2024-08-26 06:37] LABS: Eosinophils % (manual) 2 (0-7); Lymphocytes % (manual) 60 (10.0-50.0); Platelet Estimate Adequate; Reactive Lymphocytes 5
[2024-08-26 08:48] LABS: Folate (Folic Acid) 20.22 ng/mL (>5.38)
[2024-08-26] MEDS: DOCUSATE SOD 100 MG CAP PO SCH (10:48)
[2024-08-26] MEDS: MAGNESIUM SULFATE 1GM/100ML 100 ML IV ONE (10:49)
[2024-08-26] MEDS: THIAMINE 100mg/ml INJ (200mg/2ml VIAL) IV ONE (10:49)
[2024-08-26] MEDS: FLUoxetine HCL 20 MG CAP PO SCH (10:49)
[2024-08-26 10:50] LABS: Amphetamine Screen, Urine Neg (NEGATIVE); Barbiturate Scree,Urine Neg (NEGATIVE); Benzodiazephine Screen, Urine Neg (NEGATIVE); Cocaine Screen, Urine Neg (NEGATIVE); Opiate Scree,Urine Neg (NEGATIVE); Phencyclidine Screen, Urine Neg (NEGATIVE)
[2024-08-26 10:51] LABS: Cannabinoid Screen, Urine Neg (NEGATIVE)
[2024-08-26 11:29] LABS: Amphetamine Screen, Urine Neg (NEGATIVE); Barbiturate Scree,Urine Neg (NEGATIVE); Benzodiazephine Screen, Urine Neg (NEGATIVE); Cannabinoid Screen, Urine Neg (NEGATIVE); Cocaine Screen, Urine Neg (NEGATIVE); Opiate Scree,Urine Neg (NEGATIVE); Phencyclidine Screen, Urine Neg (NEGATIVE)
[2024-08-26] MEDS: amLODIPine BESYLATE 5 MG TAB PO ONE (18:37)
[2024-08-26] MEDS: SODIUM CHLORIDE 0.9% 1,000 ML IV ONE (18:38)
[2024-08-27] VITALS (7 sets, daily range): BP systolic 109–134; BP diastolic 76–93; PULSE 64–81; RESP 18–20; TEMP 97.9–98.7; O2SAT 96–99
[2024-08-27 05:24] LABS: Hematocrit 45.2 % (41.0-53.0); Hemoglobin 15.5 g/dL (13.5-17.5); Mean Corpuscular Hemoglobin 33.2 pg (28.0-32.0); Mean Corpuscular Hgb Conc. 34.3 g/dL (32.0-36.0); Mean Corpuscular Volume 96.8 fL (80.0-100.0); Platelet Count (auto) 212 10^3/uL (140-450); Red Blood Cells 4.67 10^6/uL (4.5-5.90); Red Cell Distribution Width 14.4 % (11.8-14.3); White Blood Cell 3.4 10^3/uL (4.4-10.8)
[2024-08-27 05:26] LABS: Band Neutrophils % (manual) 0; Basophils % (manual) 0 (0.0-2.0); Blast Cells 0; Metamyelocytes % 0; Myelocytes % 0; Promyelocytes % 0
[2024-08-27 05:32] LABS: Chloride 108 mmol/L (98-107); Potassium 4.1 mmol/L (3.5-5.1); Sodium 141 mmol/L (136-145)
[2024-08-27 05:33] LABS: Anion Gap 4 (5-15); Carbon Dioxide 29 mmol/L (20-31)
[2024-08-27 05:38] LABS: BUN/Creatinine Ratio 5.5 (10.0-20.0); Blood Urea Nitrogen 6 mg/dL (9-23); Glucose 94 mg/dL (74-106)
[2024-08-27 06:19] LABS: Eosinophils % (manual) 1 (0-7); Lymphocytes % (manual) 59 (10.0-50.0); Monocytes % (manual) 2 (0-12); Platelet Estimate Adequate; Reactive Lymphocytes 8
[2024-08-27] MEDS: ONDANSETRON HCL 4 MG/2 ML VIAL IV PRN (10:09)
[2024-08-27] MEDS: amLODIPine BESYLATE 5 MG TAB PO SCH (10:09)
[2024-08-27] MEDS: ACETAMINOPHEN 325 MG TAB PO PRN (11:16)
[2024-08-28] VITALS (12 sets, daily range): BP systolic 109–137; BP diastolic 70–102; PULSE 65–84; RESP 16–20; TEMP 97.6–98.9; O2SAT 93–100
[2024-08-28 09:30] LABS: Hepatitis B Surface Antigen Negative (Negative)
[2024-08-28 09:51] LABS: Hepatitis C Antibody Negative (Negative)
[2024-08-28 10:17] LABS: Basophils # (auto) 0 10 ^3/uL (0-0.2); Basophils % (auto) 0.4 % (0.0-2.0); Eosinophils # (auto) 0.1 10 ^3/uL (0-0.8); Eosinophils % (auto) 1.3 % (0.0-7.0); Hematocrit 47.8 % (41.0-53.0); Hemoglobin 16.1 g/dL (13.5-17.5); Lymphocytes # (auto) 1.4 10 ^3/uL (0.4-5.4); Lymphocytes % (auto) 34.6 % (10.0-50.0); Mean Corpuscular Hemoglobin 32.8 pg (28.0-32.0); Mean Corpuscular Hgb Conc. 33.6 g/dL (32.0-36.0); Mean Corpuscular Volume 97.6 fL (80.0-100.0); Monocytes # (auto) 0.2 10 ^3/uL (0-1.3); Monocytes % (auto) 5.8 % (0.0-12.0); Neutrophils # (auto) 2.4 10 ^3/uL (1.6-8.6); Neutrophils % (auto) 57.9 % (37.0-80.0); Nucleated Red Blood Cells % 0.3 %; Platelet Count (auto) 225 10^3/uL (140-450); Red Cell Distribution Width 14.4 % (11.8-14.3); White Blood Cell 4.1 10^3/uL (4.4-10.8)
[2024-08-28 10:25] LABS: Chloride 106 mmol/L (98-107); Potassium 4.1 mmol/L (3.5-5.1); Sodium 141 mmol/L (136-145)
[2024-08-28 10:26] LABS: Anion Gap 5 (5-15); Carbon Dioxide 30 mmol/L (20-31)
[2024-08-28 10:27] LABS: Calcium 10.2 mg/dL (8.7-10.4)
[2024-08-28 10:31] LABS: BUN/Creatinine Ratio 5.1 (10.0-20.0); Blood Urea Nitrogen 6 mg/dL (9-23); Glucose 92 mg/dL (74-106)
[2024-08-28 10:41] LABS: INR 1.13 (0.9-1.15); Partial Thromboplastin Time 30.8 SEC (24.5-34.5); Prothrombin Time 11.9 sec (9.3-11.8)
[2024-08-28] MEDS: MIDAZOLAM HCL 2MG/2ML 2ml VIAL (1mg/ml) ONE ×2 (13:57→13:59)
[2024-08-28] MEDS: LIDOCAINE 2%HCL (LOCAL ANESTH.) INJ 20ML MDV ONE (13:58)
[2024-08-28] MEDS: SODIUM CHL 0.9% 0 ML ONE (13:58)
[2024-08-28] MEDS: IODIXANOL 320MG/ML 100ML BTL IV ONE (13:58)
[2024-08-28] MEDS: HEPARIN SODIUM (PORCINE) 5000 UNITS/ML 1ML VIAL ONE (13:59)
[2024-08-28] MEDS: fentaNYL CITRATE 100 MCG/2 ML VL ONE (13:59)
[2024-08-28] MEDS: VERAPAMIL 2.5MG/ML INJ 2ML VIAL IV ONE (13:59)
[2024-08-28] MEDS: ANGIOMAX 250 MG VIAL IV ONE (13:59)
[2024-08-28] MEDS: GELATIN 1 SPONGE SIZE 50 TOP ONE (14:00)
[2024-08-29 00:53] VITALS: BP 117/82; PULSE 67; RESP 16; TEMP 97.8; O2SAT 96
[2024-08-29 05:00] VITALS: BP 118/77; PULSE 76; RESP 16; TEMP 97.6; O2SAT 99
[2024-08-29 08:00] VITALS: PULSE 68; RESP 18; O2SAT 98
[2024-08-29 08:21] VITALS: BP 127/88; PULSE 78; RESP 15; TEMP 98.1; O2SAT 96
[2024-08-29] MEDS ORDERED: ASPI-325 PO (08:55)
[2024-08-29] MEDS ORDERED: AML5T PO (08:55)
[2024-08-29] MEDS ORDERED: ATOR20TA50 PO (08:55)
[2024-08-29 10:47] VITALS: BP 125/91
[2024-08-31 12:06] LABS: Vitamin D 25-Hydroxy 18 ng/mL (.); Vitamin D-2 25-Hydroxy <1.0 ng/mL (.); Vitamin D-3 25-Hydroxy 18 ng/mL (.)
== END 2024-08-29 14:33 | disposition home or self-care (01) | DRG 192 ==
LOC: EDBD 09:16 → EDSEX 09:16 → ER 09:16 → TELE 14:10 → TELE-E-ADS 18:05 → EAST 08-28 16:43
PROVIDERS: ADMIT Internal Medicine; ATTEND Emergency Medicine
PROC: B211YZZ Fluoroscopy of Multiple Coronary Arteries using Other Contrast (ICD-10-PCS; principal; 2024-08-28)
PROC: 4A023N7 Measurement of Cardiac Sampling and Pressure, Left Heart, Percutaneous Approach (ICD-10-PCS; 2024-08-28)
DX: I16.0 Hypertensive urgency (principal); I21.A1 Myocardial infarction type 2; R07.9 Chest pain, unspecified; E11.65 Type 2 diabetes mellitus with hyperglycemia; I10 Essential (primary) hypertension; F20.9 Schizophrenia, unspecified; F17.210 Nicotine dependence, cigarettes, uncomplicated; F41.1 Generalized anxiety disorder; F32.A Depression, unspecified; Z59.00 Homelessness unspecified; Z79.1 Long term (current) use of non-steroidal anti-inflammatories (NSAID); Z79.899 Other long term (current) drug therapy; Z71.6 Tobacco abuse counseling
CPT/HCPCS: 36415; 71045; 74176; 80048; 80053; 80061; 80307; 81001; 82306; 82607; 82746; 83036; 83735; 84443; 84484; 85007; 85025; 85027; 85610; 85730; 86803; 86850; 86900; 86901; 87081; 87340; 93005; 93458; 99152; G0378; J2250; J2405; Q9967

== ENCOUNTER 2024-11-11 15:26 | Emergency (ER) | payer MEDICAID ==
[~2024-11-11] VITALS: Ht 177.8 cm; Wt 70.0 kg
[~2024-11-11 15:26] MED LIST changes: +AML5T PO; +ASPI-325 PO; +ATOR20TA50 PO; -DICY10CA PO; -IBUP-1455 PO; -ZOFR4T PO
--- NOTE | 2024-11-11 15:37 | ED.PDOC ---
History of Present Illness HPI Comments 39 Y M, HANNAH presents to the ED with CC of generalized weakness. Per EMS, patient has been experiencing bilateral leg pain x1 wk. Patient is currently homeless; relays that he walked from [facility] to [place] and has since had musculoskeletal pain. Patient denies illicit drug usage, tobacco usage, or ETOH consumption. Patient denies fever, chills, body aches, nasal congestion, or N/V/D. Time Seen by MD: 03:50 Primary Care Provider: UNKNOWN Reviewed Notes: Nurses Notes, Medications, Allergies Allergies: Coded Allergies: NO KNOWN ALLERGIES (Unverified , 12/29/23) Home Meds Active Scripts Atorvastatin Calcium (ATORVASTATIN CALCIUM) 20 Mg Tab, 40 MG PO HS for 30 Days, #60 TAB 2 Refills Prov:JOSE MARTIN RESIDENT 08/29/24 Aspirin (Aspirin Low Dose) 81 Mg Tab, 81 MG PO DAILY for 30 Days, #30 TAB 2 Re fills Prov:JOSE MARTIN [facility] 08/29/24 Amlodipine Besylate (NORVASC TABLET) 5 Mg Tb, 5 MG PO DAILY for 30 Days, #30 TAB 2 Refills Prov:JOSE MARTIN [facility] 08/29/24 Quetiapine Fumerate (QUETIAPINE FUMARATE) 25 Mg Tab, 50 MG PO QPM for 30 Days, #60 TAB 3 Refills Prov:JAROD MIRANDA [employer] 07/24/24 Fluoxetine HCl (Fluoxetine HCl) 20 Mg Cap, 20 MG PO DAILY for 30 Days, #30 CAP 3 Refills Prov:JAROD MIRANDA [employer] 07/24/24 Acetaminophen (Acetaminophen) 500 Mg Tab, 500 MG PO Q4HP PRN, #20 TAB Prov:STAN MERIDA PAC 12/29/23 Information Source: Patient Mode of Arrival: EMS Severity: Mild Timing: Hours Duration: Since onset Past Medical History PAST MEDICAL HISTORY: Anxiety, Depression, DM, HTN, Schizophrenia Surgical History: Denies all surgeries Family History Family History: Reviewed,noncontributory to illness Social History Smoker: Cigarettes Alcohol: Denies ETOH Use Drugs: Marijuana Lives In: Homeless Constitutional: denies: chills, diaphoresis, fatigue, fever, malaise, sweats, weakness, others EENTM: denies: blurred vision, double vision, ear bleeding, ear discharge, ear drainage, ear pain, ear ringing, eye pain, eye redness, hearing loss, mouth pain, mouth swelling, nasal discharge, nose bleeding, nose congestion, nose pain, photophobia, tearing, throat pain, throat swelling, voice changes, others Respiratory: denies: cough, hemoptysis, orthopnea, SOB at rest, shortness of breath, SOB with excertion, stridor, wheezing, others Cardiovascular: denies: chest pain, dizzy spells, diaphoresis, Dyspnea on exertion, edema, irregular heart beat, left arm pain, lightheadedness, palpitations, PND, syncope, others Gastrointestinal: denies: abdomen distended, abdominal pain, blood streaked bowels, constipated, diarrhea, dysphagia, difficulty swallowing, hematemesis, melena, nausea, poor appetite, poor fluid intake, rectal bleeding, rectal pain, vomiting, others Genitourinary: denies: burning, dysuria, flank pain, frequency, hematuria, incontinence, penile discharge, penile sore, pain, testicle pain, testicle swelling, urgency, others Neurological: denies: dizziness, fainting, headache, left sided numbness, left sided weakness, numbness, paresthesia, pre-existing deficit, right sided numbness, right sided weakness, seizure, speech problems, tingling, tremors, weakness, others Musculoskeletal: reports: muscle pain, others (BILATERAL LEG PAIN); denies: back pain, gout, joint pain, joint swelling, muscle stiffness, neck pain Integumetry: denies: bruises, change in color, change in hair/nails, dryness, laceration, lesions, lumps, rash, wounds, others Allergic/Immunocompromised: denies: Difficulty Healing, Frequent Infections, Hives, Itching, others Hematologic/Lymphatic: denies: anemia, blood clots, easy bleeding, easy bruising, swollen glands, others Endocrine: denies: excessive hunger, excessive sweating, excessive thirst, excessive urination, flushing, intolerance to cold, intolerance to heat, unexplained weight gain, unexplained weight loss, others Psychiatric: denies: anxiety, bipolar disorder, depression, hopeless, panic disorder, schizophrenia, sleepless, suicidal, others All Other Systems: Reviewed and Negative Physical Exam General Appearance: Moderate Distress, Normal HEENT: Normal ENT Inspection, Pharynx Normal, TMs Normal Neck: Full Range of Motion, Non-Tender, Normal, Normal Inspection Respiratory: Chest Non-Tender, Lungs Clear, No Accessory Muscle Use, No Respiratory Distress, Normal Breath Sounds Cardiovascular: No Edema, No JVD, No Murmur, No Gallop, Normal Peripheral Pulses, Regular Rate/Rhythm Breast Exam: Deferred Gastrointestinal: No Organomegaly, Non Tender, No Pulsatile Mass, Normal Bowel Sounds, Soft Genitalia: Deferred Pelvic: Deferred Rectal: Deferred Extremities: No calf tenderness, Normal capillary refill, Normal inspection, Normal range of motion, Non-tender, No pedal edema Musculoskeletal : Apperance: Normal Neurologic: Alert, button broacher II-XII nml as Tested, No Motor Deficits, Normal Affect, Normal Mood, No Sensory Deficits Cerebellar Function: Normal Reflexes: Normal Skin: Dry, Normal Color, Warm Peripheral Pulses: 3+ Radial (R), 3+ Radial (L) Lymphatic: No Adenopathy Was a procedure done? Was a procedure done?: No Differential Dx Considerations may include: GENERALIZED WEAKNESS, MUSCULOSKELETAL PAIN, BILATERAL LEG PAIN X-Ray, Labs, Meds, VS Vital Signs Date Time Temp Pulse Resp B/P (MAP) Pulse Ox O2 Delivery O2 Flow Rate FiO2 11/11/24 16:23 97.9 103 16 120/71 (87) 95 97.9 11/11/24 15:57 97.9 103 20 120/71 (87) 95 Patient alert. Has been walking for many days. Has not had anything to eat. Vitals stable. 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 Denies suicidal or homicidal ideation. Ambulating without difficulty. Denies any symptoms. History of schizophrenia. Explained to the patient. Was told to follow up with his primary care physician. Was told to come back if there is any problem. Time of 1ST Reevaluation: 04:20 Reevaluation 1ST: Improved Patient Education/Counseling: Diagnosis, Treatment Family Education/Counseling: No Family Present Additional Information I REVIEWED THE FOLLOWING NOTES FROM PATIENTS PAST MEDICAL ENCOUNTERS: 07/10/24 DX:ETOH INTOXICATION, 08/25/24 DX:ACUTE CHEST PAIN ADDITIONAL INFORMATION WAS GATHERED FROM INTERVIEWING THE FOLLOWING INDEPENDENT HISTORIANS: EMS I DISCUSSED TREATMENT AND RESULTS WITH MEDICAL PERSONNEL AND: PATIENT Departure 1 Departure Time of Disposition: 16:40 Impression: Primary Impression: Musculoskeletal pain Disposition: HOME / SELF CARE / HOMELESS Condition: Good Discharged With: Self Critical Care Note Critical Care Time?: No Stability Stability form required: No Heart Score Heart Score: Heart Score Response (Comments) Value History N/A 0 EKG N/A 0 Age N/A 0 Risk Factors N/A 0 Troponin N/A 0 Total 0 I personally scribed for YAMILKA GOMEZ MD ([email or web address]) on 11/11/24 at 15:37. Electronically submitted by Amina Reinoso ([email or web address]). I personally scribed for YAMILKA GOMEZ MD ([email or web address]) on 11/11/24 at 16:05. Electronically submitted by Amina Reinoso ([email or web address]). I personally scribed for YAMILKA GOMEZ MD ([email or web address]) on 11/11/24 at 16:10. Electronically submitted by Amina Reinoso ([email or web address]). I personally scribed for YAMILKA GOMEZ MD ([email or web address]) on 11/11/24 at 16:14. Electronically submitted by Amina Reinoso ([email or web address]). I personally scribed for YAMILKA GOMEZ MD ([email or web address]) on 11/11/24 at 16:41. Electronically submitted by Amina Reinoso ([email or web address]). I personally scribed for YAMILKA GOMEZ MD ([email or web address]) on 11/11/24 at 17:03. Electronically submitted by Amina Reinoso ([email or web address]). YAMILKA GOMEZ MD Nov 11, 2024 15:37
[2024-11-11 16:23] VITALS: BP 120/71; PULSE 103; RESP 16; TEMP 97.9; O2SAT 95
== END 2024-11-12 04:46 | disposition home or self-care (01) ==
LOC: EDBD 15:26 → ER 15:26
DX: M79.18 Myalgia, other site (principal); R53.1 Weakness; F41.9 Anxiety disorder, unspecified; F32.A Depression, unspecified; I10 Essential (primary) hypertension; E11.9 Type 2 diabetes mellitus without complications; F17.210 Nicotine dependence, cigarettes, uncomplicated; Z79.82 Long term (current) use of aspirin; Z79.899 Other long term (current) drug therapy